=== PATIENT | male | born 2000 | race Native Hawaiian/Other Pacific Islander ===

== ENCOUNTER 2018-06-16 11:00 | Emergency (ER) | payer OTHER ==
[~2018-06-16] VITALS: Ht 185.4 cm; Wt 63.5 kg
[2018-06-16 11:00] VITALS: TEMP 97.6
[2018-06-16 12:05] VITALS: BP 142/72
== END 2018-06-16 12:30 | disposition home or self-care (01) ==
LOC: ED 11:00
PROC: 0HQLXZZ Repair Left Lower Leg Skin, External Approach (ICD-10-PCS; principal; 2018-06-16)
DX: S71.112A Laceration without foreign body, left thigh, initial encounter (principal); W26.0XXA Contact with knife, initial encounter; Y93.89 Activity, other specified; Y92.89 Other specified places as the place of occurrence of the external cause; Z23 Encounter for immunization
CPT/HCPCS: 90715; 99284; J7040

== ENCOUNTER 2018-06-27 09:42 | Emergency (ER) | payer OTHER ==
[~2018-06-27] VITALS: Ht 185.4 cm; Wt 63.5 kg
[2018-06-27 09:40] VITALS: BP 146/82; TEMP 99.1
== END 2018-06-27 10:00 | disposition home or self-care (01) ==
LOC: ED 09:42
DX: Z48.02 Encounter for removal of sutures (principal)